=== PATIENT | female | born 1975 | race African-American/Black ===

== ENCOUNTER 2019-06-27 09:13 | Emergency (ER) | payer OTHER ==
--- NOTE | 2019-06-27 10:36 | RAD ---
Exam: XR Ankle Lt 3 View STANDARD HISTORY: Postoperative pain. COMPARISON: 10/05/2013 FINDINGS: There has been interval removal of the surgical hardware noted on prior exam with removal of lateral plate and screws in distal fibula as well as screws overlying the distal tibia. A portion of a screw remains overlying the distal tibia with metallic densities seen in the medial left tibia relate d to recent hardware in this region. Multiple punctate metallic densities are seen overlying soft tissues. Fusion of the tibiotalar joint is noted. No fracture or dislocation is seen. No other osseou s abnormality. IMPRESSION: Interval removal of metallic hardware from the left ankle as described above with evidence of fusion of the tibiotalar joint. No definite acute osseous abnormality is seen.
== END 2019-06-27 10:55 | disposition home or self-care (01) ==
LOC: ERS 09:13
DX: M25.572 Pain in left ankle and joints of left foot (principal); G89.29 Other chronic pain; I10 Essential (primary) hypertension; J45.909 Unspecified asthma, uncomplicated; F31.9 Bipolar disorder, unspecified; F20.9 Schizophrenia, unspecified

== ENCOUNTER 2019-06-28 09:34 | Outpatient (CLI) | payer OTHER ==
--- NOTE | 2019-06-28 10:17 | MMO ---
Bilateral MAMMO Bilat Screen [facility]DI. CLINICAL HISTORY: Patient is 44 years old and is seen for screening. The patient has no family history of breast cancer. The patient has no personal history of cancer. VIEWS: The views performed were: bilateral craniocaudal with tomosynthesis and bilateral mediolateral oblique with tomosynthesis. This study has been interpreted with the assistance of computer-aided detection. MAMMOGRAM FINDINGS: There are scattered fibroglandular densities. There are no suspicious masses, suspicious calcifications, or new areas of architectural distortion. IMPRESSION: THERE IS NO MAMMOGRAPHIC EVIDENCE OF MALIGNANCY. A ROUTINE FOLLOW-UP MAMMOGRAM IN 1 YEAR IS RECOMMENDED. ACR BI-RADS Category 1 - Negative MAMMOGRAPHY NOTE: 1. A negative mammogram report should not delay a biopsy if a dominant of clinically suspicious mass is present. 2. Approximately 10% to 15% of breast cancers are not detected by mammography. 3. Adenosis and dense breasts may obscure an underlying neoplasm. Reported by: Ariadne STODDARD Electonically Signed: [id number]
== END 2019-06-28 09:35 | disposition home or self-care (01) ==
LOC: BICMAMMO 09:34
PROVIDERS: ATTEND Family Medicine
DX: Z12.31 Encounter for screening mammogram for malignant neoplasm of breast (principal)
CPT/HCPCS: 77063; 77067

== ENCOUNTER 2020-03-09 08:45 | Emergency (ER) | payer OTHER ==
[2020-03-09] MEDS ORDERED: Dicyclomine 20 MG TAB ONE (09:10)
[2020-03-09] MEDS ORDERED: Lidocaine Viscous Sol 2% 15 ml UD Cup ONE (09:10)
[2020-03-09] MEDS ORDERED: Mag-Al 1200 mg/1200 mg/30 ML UDCUP ONE (09:10)
== END 2020-03-09 11:00 | disposition home or self-care (01) ==
LOC: ERS 08:45
DX: R10.9 Unspecified abdominal pain (principal); R10.816 Epigastric abdominal tenderness; I10 Essential (primary) hypertension; J45.909 Unspecified asthma, uncomplicated; F31.9 Bipolar disorder, unspecified; F20.9 Schizophrenia, unspecified; Z79.899 Other long term (current) drug therapy
CPT/HCPCS: 99283

== ENCOUNTER 2020-03-13 09:51 | Emergency (ER) | payer OTHER ==
[2020-03-13] MEDS ORDERED: HYDROcodone/Acetaminophen 10/325 mg Tablet ONE (10:24)
--- NOTE | 2020-03-13 10:39 | RAD ---
XR Knee Rt 4 View STANDARD History: Pain Comparison: None. Findings: No acute fracture or malalignment. No significant joint effusion. Soft tissues are normal. Impression: No acute osseous abnormality. Small medial compartment osteophytes.
== END 2020-03-13 11:41 | disposition home or self-care (01) ==
LOC: ERS 09:51
DX: M23.91 Unspecified internal derangement of right knee (principal); I10 Essential (primary) hypertension; J45.909 Unspecified asthma, uncomplicated; F31.9 Bipolar disorder, unspecified; F20.9 Schizophrenia, unspecified; X50.9XXA Other and unspecified overexertion or strenuous movements or postures, initial encounter; Z79.899 Other long term (current) drug therapy

== ENCOUNTER 2020-05-31 10:06 | Day surgery (SDC) | payer OTHER ==
[2020-05-29 14:20] VITALS: BMI 45.7
[~2020-05-31 10:06] MED LIST: PROPOFOL 200 MG/20 ML VIAL ONE
--- NOTE | 2020-05-31 12:56 | OP ---
DATE OF PROCEDURE: 05/31/2020 PREPROCEDURE DIAGNOSES: 1. Variable dysphagia. 2. Chronic diarrhea since cholecystectomy in 2004. It has been worse recently, it is after meals. There has been no weight loss. Normal CBC, comp met, TSH. Negative celiac. Negative stool studies for infection, fecal lactoferrin, fecal fat. PROCEDURES PERFORMED: 1. Esophagogastroduodenoscopy with dilatation. 2. Diagnostic colonoscopy. POSTPROCEDURE DIAGNOSES: 1. Normal EGD. Empiric dilatation performed secondary to the patient's complaints of dysphagia. 2. Normal colonoscopy up to the ileum. No signs of loss of vascular pattern to suggest microscopic colitis. No signs of colitis or inflammation or infection. Normal ileum. RECOMMENDATIONS: 1. Repeat colonoscopy at age 52 for screening purposes. 2. Colestid at bedtime, low-fat diet. Follow up in office in 3 weeks. ANESTHESIA: TIVA. PROCEDURE IN DETAIL: After the patient was informed of the risks, benefits, possible complications of endoscopy and colonoscopy, informed consent was obtained. The patient was brought to the endoscopy suite, where she was sedated in gradual fashion. When she was comfortable, a bite block was placed in the incisural orifice. The endoscope was advanced into the esophagus, stomach, into the second and third portions of duodenum and slowly removed. There was good visualization of the mucosa. The esophagus was normal. There was no evidence of strictures or rings. There was a small hiatal hernia. There were no signs of reflux esophagitis. The stomach was normal in forward and retroflexed views. The duodenum was normal to the third portion. The scope was removed. Empiric dilatation was performed with 54-[place] dilator. Second look showed no effect. The scope was removed. The patient turned to the room and rectal examination was performed, which was normal. The endoscope was advanced to the anal canal through the colon to the cecum. The terminal ileum was entered and found to be normal. The scope was then slowly removed. There was good prep. There was no mass, lesions, AV malformations, or polyps. Retroflexed views were normal. There were no signs of colitis or loss of vascular pattern or furrowing of the mucosa to suggest microscopic colitis. The scope was removed. The patient tolerated the procedure well, no complications. Job ID: [id number]
== END 2020-05-31 13:25 | disposition home or self-care (01) ==
LOC: SDC 10:06
PROVIDERS: ATTEND Internal Medicine Gastroenterology
PROC: 0D753ZZ Dilation of Esophagus, Percutaneous Approach (ICD-10-PCS; principal; 2020-05-31)
PROC: 0DJ08ZZ Inspection of Upper Intestinal Tract, Via Natural or Artificial Opening Endoscopic (ICD-10-PCS; principal; 2020-05-31)
PROC: 0DJD8ZZ Inspection of Lower Intestinal Tract, Via Natural or Artificial Opening Endoscopic (ICD-10-PCS; principal; 2020-05-31)
DX: K52.9 Noninfective gastroenteritis and colitis, unspecified (principal); K44.9 Diaphragmatic hernia without obstruction or gangrene; K30 Functional dyspepsia; K21.9 Gastro-esophageal reflux disease without esophagitis; F41.9 Anxiety disorder, unspecified; F32.9 Major depressive disorder, single episode, unspecified; M19.90 Unspecified osteoarthritis, unspecified site; J45.909 Unspecified asthma, uncomplicated; Z79.899 Other long term (current) drug therapy
CPT/HCPCS: J2704

== ENCOUNTER 2020-07-06 10:16 | Outpatient (CLI) | payer OTHER | END 2020-07-06 10:17 | disposition home or self-care (01) | LOC: BICMAMMO 10:16 | PROVIDERS: ATTEND Family Medicine | DX: Z12.31 Encounter for screening mammogram for malignant neoplasm of breast (principal) | CPT/HCPCS: 77067 ==

== ENCOUNTER 2020-09-11 12:55 | Outpatient (CLI) | payer OTHER | END 2020-09-11 12:56 | disposition home or self-care (01) | LOC: RAD 12:55 | PROVIDERS: ATTEND Physician Assistant Medical | DX: R13.10 Dysphagia, unspecified (principal); K52.9 Noninfective gastroenteritis and colitis, unspecified | CPT/HCPCS: 74220 ==

== ENCOUNTER 2020-10-25 13:10 | Outpatient (CLI) | payer OTHER | END 2020-10-25 13:11 | disposition home or self-care (01) | LOC: BICMRI 13:10 | PROVIDERS: ATTEND Orthopaedic Surgery | DX: S83.241A Other tear of medial meniscus, current injury, right knee, initial encounter (principal); M25.461 Effusion, right knee; M71.21 Synovial cyst of popliteal space [Baker], right knee; M22.8X1 Other disorders of patella, right knee; M23.8X1 Other internal derangements of right knee ==

== ENCOUNTER 2020-11-23 09:58 | Day surgery (SDC) | payer OTHER ==
[2020-11-22 16:31] VITALS: BMI 48.4
[2020-11-23] MEDS ORDERED: Ketorolac Tromethamine 30 MG/ML VIAL ONE (12:12)
[2020-11-23] MEDS ORDERED: Ondansetron PF 4 MG/2 ML Vial ONE ×2 (12:12→13:27)
[2020-11-23] MEDS ORDERED: PROPOFOL 200 MG/20 ML VIAL ONE (12:12)
[2020-11-23] MEDS ORDERED: Lidocaine 1% PF 5 ML VIAL ONE (12:12)
[2020-11-23] MEDS ORDERED: Dexamethasone 20 MG/5 ML VIAL ONE (12:12)
[2020-11-23] MEDS ORDERED: EPINEPHrine 1 MG/ML AMP ONE (12:30)
[2020-11-23] MEDS ORDERED: Bupivacaine PF 0.5% 30 ML VIAL ONE (12:30)
[2020-11-23] MEDS ORDERED: Fentanyl 100 MCG/2 ML VIAL ONE ×2 (13:20→13:41)
[2020-11-23] MEDS ORDERED: HYDROcodone/Acetaminophen 5/325 mg Tablet ONE (14:05)
== END 2020-11-23 15:40 | disposition home or self-care (01) ==
LOC: SDC 09:58
PROVIDERS: ATTEND Orthopaedic Surgery
PROC: 0SBC4ZZ Excision of Right Knee Joint, Percutaneous Endoscopic Approach (ICD-10-PCS; principal; 2020-11-23)
DX: S83.231A Complex tear of medial meniscus, current injury, right knee, initial encounter (principal); S83.281A Other tear of lateral meniscus, current injury, right knee, initial encounter; S83.511A Sprain of anterior cruciate ligament of right knee, initial encounter; M65.88 Other synovitis and tenosynovitis, other site; Z79.899 Other long term (current) drug therapy; W19.XXXA Unspecified fall, initial encounter
CPT/HCPCS: J0171; J0690; J1100; J1885; J2405; J2704; J3010; S0020

== ENCOUNTER 2021-01-29 13:25 | Outpatient (CLI) | payer OTHER ==
[2021-01-30 08:14] LABS: SARS-CoV-2 PCR by NAA Not Detected (NotDetected)
== END 2021-01-29 13:26 | disposition home or self-care (01) ==
LOC: LABBT 13:25
PROVIDERS: ATTEND Internal Medicine Gastroenterology
DX: Z01.812 Encounter for preprocedural laboratory examination (principal); K52.9 Noninfective gastroenteritis and colitis, unspecified; R13.10 Dysphagia, unspecified; Z20.822 Contact with and (suspected) exposure to COVID-19
CPT/HCPCS: U0003; U0005

== ENCOUNTER → 2021-02-01 | Day surgery (SDC) | payer OTHER | LOC: SDC 10:54 | PROVIDERS: ATTEND Internal Medicine Gastroenterology | DX: R13.19 Other dysphagia (principal); K52.9 Noninfective gastroenteritis and colitis, unspecified | CPT/HCPCS: 91010 ==

== ENCOUNTER 2021-04-10 09:02 | Outpatient (CLI) | payer OTHER ==
[2021-04-10] MEDS ORDERED: Iopamidol 370 76% 100 ML VIAL ONE (13:39)
== END 2021-04-10 09:03 | disposition home or self-care (01) ==
LOC: CT 09:02
PROVIDERS: ATTEND Internal Medicine Gastroenterology
DX: K22.4 Dyskinesia of esophagus (principal); R13.19 Other dysphagia; R93.3 Abnormal findings on diagnostic imaging of other parts of digestive tract
CPT/HCPCS: 71260; 74170

== ENCOUNTER 2021-04-15 10:20 | Emergency (ER) | payer OTHER | END 2021-04-15 11:15 | disposition home or self-care (01) | LOC: ERS 10:20 | DX: R07.89 Other chest pain (principal); M25.561 Pain in right knee; G89.29 Other chronic pain; I10 Essential (primary) hypertension; J45.909 Unspecified asthma, uncomplicated | CPT/HCPCS: 93005 ==

== ENCOUNTER 2021-04-24 13:17 | Outpatient (CLI) | payer OTHER | END 2021-04-24 13:18 | disposition home or self-care (01) | LOC: MRI 13:17 | PROVIDERS: ATTEND Orthopaedic Surgery | DX: S83.241A Other tear of medial meniscus, current injury, right knee, initial encounter (principal); M25.461 Effusion, right knee; M71.21 Synovial cyst of popliteal space [Baker], right knee; M24.19 Other articular cartilage disorders, other specified site ==

== ENCOUNTER 2021-05-14 12:49 | Outpatient (CLI) | payer OTHER ==
[2021-05-14 13:53] LABS: Hemoglobin 12.6 g/dL (12.0-15.5); Mean Corpuscular HGB CONC 30.4 g/dL (32.0-36.0); Mean Corpuscular Hemoglobin 25.3 pg (27.0-33.0); Mean Corpuscular Volume 83.2 fl (81.6-98.3); Mean Platelet Volume 10.3 fl (7.4-10.4); Platelet Count 344 10x3/uL (150-450); RBC Distribution Width 15.8 % (11.5-14.5); Red Blood Cell (RBC) Count 4.99 10x6/uL (3.90-5.03); White Blood Cell (WBC) Count 11.5 10x3/uL (3.5-10.5)
[2021-05-14 14:04] LABS: Anion Gap 13 mmol/L (10-20); BUN (Urea Nitrogen) 7 mg/dL (7.0-18.7); Calc. Creatinine Clearance 0 mL/min (70-130); Calcium 9.3 mg/dL (7.8-10.44); Carbon Dioxide 25 mmol/L (22-29); Chloride 108 mmol/L (98-107); Glucose 88 mg/dL (70-105); Potassium 4.6 mmol/L (3.5-5.1); Sodium 141 mmol/L (136-145)
[2021-05-15 07:27] LABS: SARS-CoV-2 PCR by NAA Not Detected (NotDetected)
== END 2021-05-14 12:50 | disposition home or self-care (01) ==
LOC: LABBT 12:49
PROVIDERS: ATTEND Orthopaedic Surgery
DX: Z01.818 Encounter for other preprocedural examination (principal); S83.281A Other tear of lateral meniscus, current injury, right knee, initial encounter; Z20.822 Contact with and (suspected) exposure to COVID-19
CPT/HCPCS: 80048; 85027; 93005; 93010; U0003; U0005

== ENCOUNTER 2021-05-17 09:42 | Day surgery (SDC) | payer OTHER ==
[2021-05-11 11:53] VITALS: BMI 44.2
[2021-05-17] MEDS ORDERED: Bupivacaine 0.25% HCL 30 ML VIAL ONE (12:27)
[2021-05-17] MEDS ORDERED: EPINEPHrine 1 MG/ML AMP ONE (12:27)
[2021-05-17] MEDS ORDERED: Fentanyl 100 MCG/2 ML VIAL ONE ×2 (12:28→14:44)
[2021-05-17] MEDS ORDERED: PROPOFOL 200 MG/20 ML VIAL ONE (12:51)
[2021-05-17] MEDS ORDERED: Ketorolac Tromethamine 30 MG/ML VIAL ONE (12:51)
[2021-05-17] MEDS ORDERED: Lidocaine 1% PF 5 ML VIAL ONE (12:51)
[2021-05-17] MEDS ORDERED: Ondansetron PF 4 MG/2 ML Vial ONE (12:51)
[2021-05-17] MEDS ORDERED: Dexamethasone 20 MG/5 ML VIAL ONE (12:51)
[2021-05-17] MEDS ORDERED: HYDROmorphone 2 MG/ML VIAL ONE (14:05)
[2021-05-17] MEDS ORDERED: Morphine 4 MG/ML VIAL ONE (15:52)
[2021-05-17] MEDS ORDERED: HYDROcodone/Acetaminophen 5/325 mg Tablet ONE (16:13)
== END 2021-05-17 17:00 | disposition home or self-care (01) ==
LOC: SDC 09:42
PROVIDERS: ATTEND Orthopaedic Surgery
PROC: 0MRN47Z Replacement of Right Knee Bursa and Ligament with Autologous Tissue Substitute, Percutaneous Endoscopic Approach (ICD-10-PCS; principal; 2021-05-17)
PROC: 0SBC4ZZ Excision of Right Knee Joint, Percutaneous Endoscopic Approach (ICD-10-PCS; principal; 2021-05-17)
DX: M23.8X1 Other internal derangements of right knee (principal); S83.241A Other tear of medial meniscus, current injury, right knee, initial encounter; M65.88 Other synovitis and tenosynovitis, other site; M22.41 Chondromalacia patellae, right knee; J45.909 Unspecified asthma, uncomplicated; E11.9 Type 2 diabetes mellitus without complications; Z79.899 Other long term (current) drug therapy
CPT/HCPCS: C1713; J0171; J1100; J1170; J1885; J2270; J2405; J2704; J3010; S0020

== ENCOUNTER 2021-05-21 19:42 | Emergency (ER) | payer OTHER | END 2021-05-21 20:56 | disposition left against medical advice (07) | LOC: ERS 19:42 | DX: Z53.21 Procedure and treatment not carried out due to patient leaving prior to being seen by health care provider (principal) ==

== ENCOUNTER 2023-03-11 10:06 | Outpatient (CLI) | payer OTHER | END 2023-03-11 10:07 | disposition home or self-care (01) | LOC: BICMAMMO 10:06 | PROVIDERS: ATTEND Nurse Practitioner Family | DX: Z12.31 Encounter for screening mammogram for malignant neoplasm of breast (principal) | CPT/HCPCS: 77067 ==